=== PATIENT | male | born 1975 | race Caucasian/White ===

== ENCOUNTER → 2017-08-17 | Outpatient (CLI) | payer BC ==
--- NOTE | 2017-08-17 12:32 | EST ---
EXERCISE STRESS DATE OF SERVICE: 08/17/2017 AGE: 41 SEX: M HT: 71: WT: 199 PROTOCOL: Jose Cruz Stress Test STAGE: 5 DURATION OF EXERCISE: 11:15 HEART RATE REST: 71 BLOOD PRESSURE REST: 143/88 MAXIMUM HEART RATE ACHIEVED: 153 MAXIMUM BLOOD PRESSURE: 177/75 85% MPHR: 150 100% MPHR: 177 METS: 12.1 INDICATIONS: COPD CLINICAL INFORMATION: Baseline rhythm is sinus mechanism, rate of 71, normal axis and intervals, poor progression. Baseline blood pressure 143/88 mmHg. Patient exercised on Jose Cruz protocol for 11 minute 15 seconds reaching peak heart rate of 153 beats per minute, which is equal to 86% maximum predicted heart rate, Peak blood pressure 177/75 mmHg. Test was terminated due to fatigue. There were no chest pains. Electrocardiographic monitoring revealed no evidence of diagnostic ischemic ST deviation. CONCLUSION: 1. Good exercise tolerance with normal electrocardiograph response to exercise. 2. No evidence of chest discomfort. MMODL / IJN: [id number] /
== END | disposition home or self-care (01) ==
LOC: RADNMMAIN 10:37
PROVIDERS: ATTEND Family Medicine
DX: J44.9 Chronic obstructive pulmonary disease, unspecified (principal)
CPT/HCPCS: 93017

== ENCOUNTER 2017-08-18 12:16 | Day surgery (SDC) | payer BC ==
[2017-08-17 08:44] VITALS: BMI 26.9
[~2017-08-18 12:16] MED LIST: LACTATED RINGERS 1,000 ML IV SCH; LIDOCAINE 1% 20 ML VIAL (10MG/ML) FOR IV START INTRADERMA PRN
[2017-08-18 12:45] VITALS: TEMP 97
[2017-08-18] MEDS ORDERED: PROPOFOL 10 MG/ML 20 ML VIAL IV ONE (13:32)
[2017-08-18] MEDS ORDERED: fentaNYL (PF) 50 MCG/ML 2 ML AMP ONE (13:32)
[2017-08-18] MEDS ORDERED: LIDOCAINE 1% INJ 10MG/ML (20 ML MDV) ONE (13:32)
[2017-08-18 13:57] VITALS: RESP 18
[2017-08-18 14:12] VITALS: BP 125/82; PULSE 67
--- NOTE | 2017-08-18 14:41 | P.PCN ---
Date of Procedure: 08/18/17 Procedure(s) Performed: Procedure: Esophagogastroduodenoscopy and biopsy. Preoperative diagnosis: Dysphagia. Postoperative diagnosis: 1. Small hiatal hernia and mild corrugations of the esophagus but no obvious esophagitis or complicated reflux disease. 2. Mild gastritis and duodenitis. 3. Multiple biopsies obtained from the duodenum, antrum and esophagus. Preparation sedation: Was provided by anesthesia. Brief clinical history: The patient is a 41-year-old male who is scheduled for this evaluation because of issues with solid food dysphagia that she has been experiencing for the last 2 years. He denied history of reflux or other alarm symptoms or anemia. This would be his first upper endoscopy. Procedure: With the patient on his left lateral decubitus position and after informed consent and adequate sedation, I passed the Olympus-GIF 160 video upper endoscope through the cricopharyngeus down the esophagus. GE junction was around 40-41 cm from the incisors and there was a small sliding hiatal hernia around 1 cm in size but no evidence of esophagitis or complicated reflux disease or any bleeding. There was mild corrugations of the esophagus but no definite features of eosinophilic esophagitis or any strictures. The endoscope was then passed into the stomach which was insufflated with air and inspected in detail including the retroflex view in the cardia. There was some mottling and erythema in the antrum but no ulcers or erosions. Pyloric channel, duodenal bulb, post bulbar area and descending duodenum did not show any obvious abnormalities with the exception of mild patches of erythema and pinpoint submucosal hemorrhage in the duodenal bulb but no ulcers, erosions or bleeding. I obtained biopsies from the duodenum, antrum and esophagus then the endoscope was withdrawn.. The patient tolerated the procedure well. Plan: The patient was reassured. Will await biopsy results and make further plans based on his course and biopsy results. He will follow up with you as planned and I'll keep you updated on his progress.
== END 2017-08-18 14:51 | disposition home or self-care (01) ==
LOC: ORWHC2ENDO 12:16
DX: K29.50 Unspecified chronic gastritis without bleeding (principal); B96.81 Helicobacter pylori [H. pylori] as the cause of diseases classified elsewhere; K29.80 Duodenitis without bleeding; K44.9 Diaphragmatic hernia without obstruction or gangrene; K21.0 Gastro-esophageal reflux disease with esophagitis
CPT/HCPCS: 88305; 88342; 43239; J2001; J3010; J2704